=== PATIENT | male | born 1990 | race Caucasian/White ===

== ENCOUNTER 2018-08-31 23:20 | Emergency (ER) | payer SELFPAY ==
[~2018-08-31] VITALS: Ht 180.3 cm; Wt 83.9 kg
== END 2018-09-01 01:44 | disposition home or self-care (01) ==
LOC: ER 23:20
DX: R07.0 Pain in throat (principal); K12.0 Recurrent oral aphthae
CPT/HCPCS: 83518; 87070; 99283